=== PATIENT | female | born 1990 | race Caucasian/White ===

== ENCOUNTER 2017-11-06 08:38 | Outpatient (CLI) | payer OTHER ==
--- NOTE | 2017-11-06 12:04 | XRAY Report ---
CHEST TWO VIEWS: 11/06/2017 CLINICAL HISTORY: Cough. COMPARISON: None. FINDINGS: Normal heart size. Clear lungs. No pleural fluid or pneumothorax. Negative bony structures . IMPRESSION: NEGATIVE TWO VIEW CHEST X-RAY. JOB #: [id number] EXT JOB #:[id number]
== END 2017-11-06 08:39 | disposition home or self-care (01) ==
LOC: DI.N 08:38
PROVIDERS: ATTEND Family Medicine
DX: R05 Cough (principal)
CPT/HCPCS: 71020

== ENCOUNTER 2018-03-06 12:02 | Emergency (ER) | payer OTHER ==
[2018-03-06 12:09] VITALS: BP 118/64
[2018-03-06] MEDS ORDERED: LOPERAMIDE 2 MG CAPSULE PO STA (13:09)
[2018-03-06] MEDS ORDERED: KETOROLAC 60 MG/2 ML VIAL IVP STA (13:09)
[2018-03-06] MEDS ORDERED: SODIUM CHLORIDE 0.9% 1,000 ML IV ONE (13:09)
[2018-03-06] MEDS ORDERED: ONDANSETRON 4 MG/2 ML VIAL IVP STA (13:09)
[2018-03-06] MEDS ORDERED: ALBUTEROL NEB 2.5 MG/3 ML INH STA (13:11)
--- NOTE | 2018-03-06 13:11 | ED Physician Documentation ---
History of Present Illness - Stated complaint Stated Complaint: VOMITTING,COUGH,ACHES - Chief complaint Chief Complaint: General - History obtained from History obtained from: Patient, Family - History of Present Illness Timing: Other ('s been sick for about a week with URI, potentially flu. She became abruptly ill last night with body aches, fevers and chills, vomiting and diarrhea. No recent travel.) Review of Systems Constitutional: reports: Fever, Chills, Myalgias, Fatigue Nose: reports: Rhinorrhea / runny nose Throat: reports: Sore throat Cardiac: denies: Chest pain / pressure GI: reports: Nausea, Vomiting, Diarrhea. denies: Abdominal Pain PD PAST MEDICAL HISTORY - Present Medications Home Medications: Ambulatory Orders Medication Instructions Recorded Confirmed Albuterol Sulfate [Proventil Hfa 1 - 2 puffs IH Q4H PRN #1 03/06/18 Inhaler] [email or web address] HYDROcod/ACETAM 5/325 [[place] 5/325] 1 - 2 ea PO Q6H PRN #15 tablet 03/06/18 Ibuprofen [Motrin] 800 mg PO Q8H PRN #30 tablet 03/06/18 Loperamide [Imodium] 2 mg PO QID PRN #10 capsule 03/06/18 Ondansetron HCl [Zofran] 4 mg PO Q6H PRN #10 tablet 03/06/18 - Allergies Allergies/Adverse Reactions: Allergies Allergy/AdvReac Type Severity Reaction Status Date / Time No Known Drug Allergies Allergy Verified 03/06/18 12:09 PD ED PE NORMAL - Vitals Vital signs reviewed: Yes - General General: Alert and oriented X 3, No acute distress - HEENT HEENT: PERRL, EOMI, Ears normal, Pharynx benign - Neck Neck: Supple, no meningeal sign, No bony TTP - Cardiac Cardiac: Other (Tachycardic, regular, no murmur) - Respiratory Respiratory: No respiratory distress, Other (Mild expiratory wheezing, this is not new for her she says. No focal findings.) - Abdomen Abdomen: Non tender - Derm Derm: No rash - Neuro Neuro: Alert and oriented X 3, Normal speech Results - Vitals Vitals: Vital Signs - 24 hr 03/06/18 03/06/18 12:05 13:23 Temperature 37.5 C Heart Rate 103 H 88 Respiratory 15 18 Rate Blood Pressure 118/64 O2 Saturation 100 Oxygen O2 Source Room air - Labs Labs: Laboratory Tests 03/06/18 03/06/18 03/06/18 13:19 13:19 13:26 Sodium 135 Potassium 3.5 Chloride 105 Carbon Dioxide 22 Anion Gap 8.0 BUN 17 Creatinine 0.6 Estimated GFR (MDRD) 119 Glucose 125 H Calcium 8.2 L Total Bilirubin 0.6 AST 25 ALT 18 Alkaline Phosphatase 64 Total Protein 6.8 Albumin 4.1 Globulin 2.7 Albumin/Globulin Ratio 1.5 Lipase 16 L Urine Color LT. YELLOW Urine Clarity CLEAR Urine pH 6.0 Ur Specific [place] 1.025 Urine Protein NEGATIVE Urine Glucose (UA) NEGATIVE Urine Ketones NEGATIVE Urine Occult Blood NEGATIVE Urine Nitrite NEGATIVE Urine Bilirubin NEGATIVE Urine Urobilinogen 0.2 (NORMAL) Ur Leukocyte Esterase NEGATIVE Ur Microscopic Review NOT INDICATED Urine Culture Comments NOT INDICATED Urine HCG, Qual NEGATIVE Influenza A (Rapid) Negative Influenza B (Rapid) Negative Influenza Types A,B Ag - PD MEDICAL DECISION MAKING - ED course ED course: Healthy 27-year-old woman with a very flulike illness, surprisingly her flu swab is negative, potentially false negative?. Feeling better after the administration of IV fluids, albuterol, Toradol, Zofran, and Imodium. Departure - Departure Disposition: 01 Home, Self Care Clinical Impression: Flu-like symptoms, Dehydration Vomiting Qualifiers: Vomiting type: unspecified Vomiting Intractability: non-intractable Nausea presence: with nausea Qualified Code(s): R11.2 - Nausea with vomiting, unspecified Condition: Good Record reviewed to determine appropriate education?: Yes Instructions: ED Diet Vomiting Diarrhea, ED Flu Prescriptions: Albuterol Sulfate [Proventil Hfa Inhaler] 1 - 2 puffs IH Q4H PRN #1 hfa.[email or web address] PRN Reason: Cough HYDROcod/ACETAM 5/325 [[place] 5/325] 1 - 2 ea PO Q6H PRN #15 tablet PRN Reason: Pain Ibuprofen [Motrin] 800 mg PO Q8H PRN #30 tablet PRN Reason: PAIN &/OR FEVER Loperamide [Imodium] 2 mg PO QID PRN #10 capsule PRN Reason: Diarrhea Ondansetron HCl [Zofran] 4 mg PO Q6H PRN #10 tablet PRN Reason: Nausea / Vomiting Comments: Call your doctor to arrange a follow-up appointment, make the next available appointment. In the interim, return anytime if worse or if new symptoms develop.
[2018-03-06 13:38] LABS: BILIRUBIN,URINE NEGATIVE (NEGATIVE); GLUCOSE, URINE (UA) NEGATIVE (NEGATIVE); KETONES,URINE (UA) NEGATIVE (NEGATIVE); LEUKOCYTE ESTERASE, URINE NEGATIVE (NEGATIVE); NITRITE,URINE NEGATIVE (NEGATIVE); OCCULT BLOOD,URINE NEGATIVE (NEGATIVE); PROTEIN,URINE NEGATIVE (NEGATIVE); UROBILINOGEN,URINE 0.2 (NORMAL) E.U./dL (NORMAL)
[2018-03-06 13:41] LABS: CLARITY,URINE CLEAR (CLEAR); HCG UR QUAL NEGATIVE
[2018-03-06 13:43] LABS: ALBUMIN 4.1 g/dL (3.2-5.5); ALBUMIN/GLOBULIN RATIO 1.5 (1.0-2.2); BILIRUBIN,TOTAL 0.6 mg/dL (0.2-1.0); CALCIUM 8.2 mg/dL (8.5-10.3); CREATININE 0.6 mg/dL (0.4-1.0); TOTAL PROTEIN 6.8 g/dL (6.7-8.2)
[2018-03-06] MEDS ORDERED: HYDROcod/ACETAM 5/325 MG TABLET PO STA (13:58)
== END 2018-03-06 14:33 | disposition home or self-care (01) ==
LOC: ED 12:02
DX: R11.2 Nausea with vomiting, unspecified (principal); E86.0 Dehydration
CPT/HCPCS: 36415; 80053; 81003; 81025; 83690; 87275; 87276; 94664; 96374; 96375; 99283; 99284; A9270; 81001; 87086

== ENCOUNTER 2018-03-08 12:06 | Inpatient (IN) | payer OTHER ==
[2018-03-08] MEDS ORDERED: HYDROcod/ACETAM 5/325 MG TABLET PO STA (15:32)
[2018-03-08 16:10] LABS: BILIRUBIN,URINE NEGATIVE (NEGATIVE); GLUCOSE, URINE (UA) NEGATIVE (NEGATIVE); KETONES,URINE (UA) NEGATIVE (NEGATIVE); LEUKOCYTE ESTERASE, URINE NEGATIVE (NEGATIVE); NITRITE,URINE NEGATIVE (NEGATIVE); OCCULT BLOOD,URINE NEGATIVE (NEGATIVE); PROTEIN,URINE NEGATIVE (NEGATIVE); UROBILINOGEN,URINE 0.2 (NORMAL) E.U./dL (NORMAL)
[2018-03-08 16:13] LABS: CLARITY,URINE CLEAR (CLEAR); HCG UR QUAL NEGATIVE
[2018-03-08 16:22] LABS: BASOPHILS % (AUTO) 0.9 %; EOSINOPHILS # (AUTO) 0.4 10^3/uL (0.0-0.7); EOSINOPHILS % (AUTO) 7.9 %; HGB - HEMOGLOBIN 11.2 g/dL (12.0-16.0); LYMPHOCYTES # (AUTO) 1.4 10^3/uL (1.5-3.5); LYMPHOCYTES % (AUTO) 30.1 %; MEAN CORPUSCULAR HEMOGLOBIN 28.9 pg (27.0-31.0); MEAN CORPUSCULAR HGB CONC 33.3 g/dL (32.0-36.0); MEAN CORPUSCULAR VOLUME 86.6 fL (81.0-99.0); MEAN PLATELET VOLUME 8.1 fL (7.9-10.8); MONOCYTES # (AUTO) 0.4 10^3/uL (0.0-1.0); MONOCYTES % (AUTO) 8.5 %; NEUTROPHILS # (AUTO) 2.5 10^3/uL (1.5-6.6); NEUTROPHILS % (AUTO) 52.6 %; PLT - PLATELET COUNT 152 10^3/uL (130-450); RED BLOOD COUNT 3.86 10^6/uL (4.20-5.40); RED CELL DISTRIBUTION WIDTH 13.7 % (12.0-15.0); WHITE BLOOD COUNT 4.7 x10^3/uL (4.8-10.8)
[2018-03-08] MEDS ORDERED: HYDROmorphone 1 MG/ML CARPUJECT IVP STA ×2 (16:26→20:32)
[2018-03-08] MEDS ORDERED: ONDANSETRON 4 MG/2 ML VIAL IVP STA (16:26)
--- NOTE | 2018-03-08 16:28 | ED Physician Documentation ---
PD HPI ABD PAIN - Stated complaint Stated Complaint: ABD PX - Chief complaint Chief Complaint: Abd Pain - History obtained from History obtained from: Patient - History of Present Illness Timing - onset: Other (She was here couple of days ago for what sounds like a viral illness, she was improving but starting around noon yesterday she developed severe nonradiating right upper quadrant pain that was much more severe than any other recent pain she has had. Only abdominal surgeries are C- sections in the past. No fevers.) Review of Systems Ten Systems: 10 systems reviewed and negative Constitutional: denies: Fever, Chills Cardiac: denies: Chest pain / pressure, Palpitations Respiratory: denies: Dyspnea, Cough GI: reports: Abdominal Pain. denies: Nausea, Vomiting, Constipation, Diarrhea PD PAST MEDICAL HISTORY - Past Medical History Respiratory: Asthma - Past Surgical History Past Surgical History: Yes /PEDIATRIC PSYCHIATRIST: section - Present Medications Home Medications: Ambulatory Orders Medication Instructions Recorded Confirmed Albuterol Sulfate [Proventil Hfa 1 - 2 puffs IH Q4H PRN #1 03/06/18 Inhaler] hfa.[email or web address] HYDROcod/ACETAM 5/325 [[place] 5/325] 1 - 2 ea PO Q6H PRN #15 tablet 03/06/18 Ibuprofen [Motrin] 800 mg PO Q8H PRN #30 tablet 03/06/18 Loperamide [Imodium] 2 mg PO QID PRN #10 capsule 03/06/18 Ondansetron HCl [Zofran] 4 mg PO Q6H PRN #10 tablet 03/06/18 - Allergies Allergies/Adverse Reactions: Allergies Allergy/AdvReac Type Severity Reaction Status Date / Time No Known Drug Allergies Allergy Verified 03/08/18 12:16 - Social History Does the pt smoke?: No Smoking Status: Never smoker Does the pt drink ETOH?: No Does the pt have substance abuse?: No - Family History Family history: reports: Non contributory - Immunizations Immunizations are current?: Yes - POLST Patient has POLST: No PD ED PE NORMAL - Vitals Vital signs reviewed: Yes - General General: Alert and oriented X 3, No acute distress - HEENT HEENT: PERRL, EOMI - Neck Neck: Supple, no meningeal sign, No bony TTP - Cardiac Cardiac: RRR, No murmur - Respiratory Respiratory: No respiratory distress, Clear bilaterally - Abdomen Abdomen: Other (Quite tender in the right upper quadrant with positive Boss sign) - Back Back: No CVA TTP, No spinal TTP - Derm Derm: Normal color, Warm and dry - Extremities Extremities: No edema, No calf tenderness / cord - Neuro Neuro: Alert and oriented X 3, Normal speech - Psych Psych: Normal mood, Normal affect Results - Vitals Vitals: Vital Signs - 24 hr 03/08/18 03/08/18 03/08/18 12:12 15:12 17:34 Temperature 36.6 C 36.7 C 36.8 C Heart Rate 66 75 67 Respiratory 16 15 16 Rate Blood Pressure 118/85 H 127/89 H 107/90 H O2 Saturation 100 100 100 03/08/18 03/08/18 18:47 19:45 Temperature 36.4 C L 36.7 C Heart Rate 66 66 Respiratory 16 15 Rate Blood Pressure 124/101 H 108/65 O2 Saturation 98 100 Oxygen O2 Source Room air - Labs Labs: Laboratory Tests 03/08/18 03/08/18 03/08/18 15:43 15:43 16:14 WBC 4.7 L RBC 3.86 L Hgb 11.2 L Hct 33.5 L MCV 86.6 MCH 28.9 MCHC 33.3 RDW 13.7 Plt Count 152 MPV 8.1 Neut # 2.5 Lymph # 1.4 L [place] # 0.4 Eos # 0.4 Baso # 0.0 Absolute Nucleated RBC 0.00 Nucleated RBC % 0.0 Sodium Potassium Chloride Carbon Dioxide Anion Gap BUN Creatinine Estimated GFR (MDRD) Glucose Calcium Total Bilirubin AST ALT Alkaline Phosphatase Total Protein Albumin Globulin Albumin/Globulin Ratio Lipase Urine Color YELLOW Urine Clarity CLEAR Urine pH 6.0 Ur Specific [place] 1.010 1.010 Urine Protein NEGATIVE Urine Glucose (UA) NEGATIVE Urine Ketones NEGATIVE Urine Occult Blood NEGATIVE Urine Nitrite NEGATIVE Urine Bilirubin NEGATIVE Urine Urobilinogen 0.2 (NORMAL) Ur Leukocyte Esterase NEGATIVE Ur Microscopic Review NOT INDICATED Urine Culture Comments NOT INDICATED Urine HCG, Qual NEGATIVE 03/08/18 16:14 WBC RBC Hgb Hct MCV MCH MCHC RDW Plt Count MPV Neut # Lymph # [place] # Eos # Baso # Absolute Nucleated RBC Nucleated RBC % Sodium 140 Potassium 3.3 L Chloride 107 Carbon Dioxide 25 Anion Gap 8.0 BUN 9 Creatinine 0.5 Estimated GFR (MDRD) 147 Glucose 98 Calcium 8.6 Total Bilirubin 0.2 AST 81 H ALT 86 H Alkaline Phosphatase 130 H Total Protein 6.8 Albumin 3.9 Globulin 2.9 Albumin/Globulin Ratio 1.3 Lipase 11 L Urine Color Urine Clarity Urine pH Ur Specific [place] Urine Protein Urine Glucose (UA) Urine Ketones Urine Occult Blood Urine Nitrite Urine Bilirubin Urine Urobilinogen Ur Leukocyte Esterase Ur Microscopic Review Urine Culture Comments Urine HCG, Qual - Rads (name of study) RUQ sono Radiology: EMP read contemporaneously (Thickened edematous gallbladder wall without obvious gallstones or common bile duct thickening.) PD MEDICAL DECISION MAKING - ED course ED course: 27-year-old woman with recent viral process now presents with pain that seems like it is biliary in origin. Ultrasound confirms an edematous gallbladder but without obvious cholecystolithiasis. Case was discussed by phone with Dr. Josh Valles 7 PM who recommended admission to the hospitalist service for hydration without antibiotics and a HIDA scan on Saturday. He defers to medicine for admit and I spoke with Dr Jones about 7:40. Departure - Departure Disposition: ED Place in Observation Clinical Impression: Acalculous cholecystitis Condition: Stable
[2018-03-08 16:33] LABS: ALBUMIN 3.9 g/dL (3.2-5.5); ALBUMIN/GLOBULIN RATIO 1.3 (1.0-2.2); BILIRUBIN,TOTAL 0.2 mg/dL (0.2-1.0); CALCIUM 8.6 mg/dL (8.5-10.3); CREATININE 0.5 mg/dL (0.4-1.0); TOTAL PROTEIN 6.8 g/dL (6.7-8.2)
[2018-03-08] MEDS ORDERED: SODIUM CHLORIDE 0.9% 1,000 ML IV ONE (18:46)
--- NOTE | 2018-03-08 18:47 | Ultrasound Preliminary Report ---
Exam: US ABDOMEN LIMITED IMPRESSION: 1. Thickened, edematous gallbladder with no evidence of cholelithiasis. This is a nonspecific finding and may be secondary to acalculous cholecystitis or systemic causes. 2. No bile duct dilatation. [facility] SITE ID: [id number]
--- NOTE | 2018-03-08 18:47 | Ultrasound Report ---
EXAM: ABDOMEN ULTRASOUND LIMITED, RUQ EXAM DATE: 03/08/2018 06:04 PM. CLINICAL HISTORY: RUQ pain. COMPARISON: None. TECHNIQUE: Real-time scanning was performed with static images obtained. FINDINGS: Liver: Normal in size and echotexture. 16.7 cm. Main portal vein flow: Hepatopetal. Gallbladder: No gallstones. Edematous, thickened gallbladder wall measuring up to 15.5 mm. There is t race pericholecystic fluid. Biliary System: CBD measures 3 mm. No intrahepatic or extrahepatic ductal dilatation. Other: No right hydronephrosis. IMPRESSION: 1. Thickened, edematous gallbladder with no evidence of cholelithiasis. This is a nonspecific finding and may be secondary to acalculous cholecystitis or systemic causes. 2. No bile duct dilatation. [facility] Referring Provider Line: [phone] SITE ID: [id number]
[2018-03-08] MEDS ORDERED: diazePAM INJ 5 MG/ML SYRINGE IVP STA (19:40)
[2018-03-08] MEDS ORDERED: PROMETHAZINE 25 MG/1 ML VIAL IM PRN (20:02)
[2018-03-08] MEDS ORDERED: PROCHLORPERAZINE 10 MG/2 ML VIAL IVP PRN (20:02)
[2018-03-08] MEDS ORDERED: ZOLPIDEM 5 MG TABLET PO PRN (20:02)
[2018-03-08] MEDS ORDERED: oxyCODONE 5 MG TABLET PO PRN (20:02)
[2018-03-08] MEDS ORDERED: NS W/20 MEQ KCL 1,000 ML IV SCH (21:00)
[2018-03-08] MEDS: SODIUM CHLORIDE FLUSH 0.9% 10 ML SYRINGE IVP PRN (21:45)
[2018-03-08] MEDS: CIPROFLOXACIN 400 MG/200 ML 200 ML IV SCH (21:45)
--- NOTE | 2018-03-08 23:10 | HISTORY & PHYSICAL EXAMINATION ---
Chief Complaint - Chief Complaint Chief Complaint: Abdominal pain History of Present Illness - Admitted From Admitted From:: Emergency department - History Obtained From Records Reviewed: Yes History obtained from: Patient Exam Limitations: None - History of Present Illness HPI Comment/Other: Patient is a 27-year-old female with a past medical history significant for asthma, hypothyroidism and anemia who presented to the emergency department with a chief complaint of abdominal pain. The patient states that she was in her normal state of health until about 4 days ago when she began having flulike symptoms. She states that she was feeling nauseated and had several episodes of vomiting. She states that she had a migraine, body aches and episodes of diarrhea. She did come to the emergency room 2 days ago with these symptoms and was evaluated by the emergency room physician and thought to have had a viral syndrome. The patient's labs and electrolytes at that time were within normal limits. The patient had a negative influenza swab and was discharged home with medication to help with her symptoms. The patient states that yesterday afternoon she began having acute right upper quadrant abdominal pain with abdominal tightness. The patient states that she took her pain medication but this did not completely alleviate this pain. She states that she then began feeling nauseated and took her meds and went to sleep around 7 PM last night. She states that when she woke up this morning her symptoms were worse she had progressively worsening right upper quadrant abdominal pain with increasing nausea and vomiting. The patient states that she is also felt hot and cold flashes over the last 2-3 nights. She states that she did not think that she had had any fevers. The patient states that her body aches and headache have become slightly better and diarrhea has gradually improved. The patient states that she has had this kind of abdominal pain in the past she states that she had really bad when she became . She also states that she notices that she gets abdominal tightness when she eats greasy foods. The patient denies any blurred vision, runny nose, sore throat, nasal congestion , difficulty swallowing, neck pain, chest pain, shortness of air, orthopnea, PND , increased lower extremity swelling, constipation, joint swelling, back pain, flank pain, neck stiffness, recent unintentional weight loss, skin changes, rashes, hair loss or any focal neurologic deficits. On presentation to the emergency department the patient was afebrile and vital signs were within normal limits. The patient did appear to be grimacing in pain and was given IV Dilaudid to alleviate the abdominal pain. The patient also was nauseated and given Zofran in the emergency department. The patient was given 1 L of IV fluid. The patient's lab work revealed that she was slightly hypokalemic with elevated AST ALT and alk phos. The patient's total bilirubin was within normal limits. The patient's urine analysis was negative and her urine hCG was negative. The patient had no leukocytosis and no fevers in the emergency department. On exam the patient had significant right upper quadrant tenderness with positive Boss sign. The patient underwent an abdominal ultrasound which showed a thickened, edematous gallbladder with no evidence of cholelithiasis. The findings were nonspecific but may represent a calculus cholecystitis. There was no bile duct dilation. The emergency room physician spoke with the surgeon press set up person Dr. Josh Valles and he asked that the patient be admitted to the [facility] by the hospitalist team. He requested that a HIDA scan be ordered as he was not convinced that this is a calculus cholecystitis and felt that this could all be secondary to a viral infection. He did ask that antibiotics be held however given the patient's symptoms, exam and questionable findings on abdominal ultrasound we decided to treat with IV antibiotics and IV fluids as a calculus cholecystitis can progress rapidly if untreated. 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 Social History Notes: The patient lives in [place] with her and 2 kids. Her is in the [employer]. 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 The patient is originally from [place] and moved up here with her . The patient does not smoke cigarettes, drink alcohol or use any illicit drugs. - POLST Patient has POLST: No POLST Status: Full Code Meds/Allgy - Home Medications Home Medications: Ambulatory Orders Medication Instructions Recorded Confirmed Albuterol Sulfate [Proventil Hfa 1 - 2 puffs IH Q4H PRN #1 03/06/18 Inhaler] hfa.aer.ad HYDROcod/ACETAM 5/325 [Wideman 5/325] 1 - 2 ea PO Q6H PRN #15 tablet 03/06/18 Ibuprofen [Motrin] 800 mg PO Q8H PRN #30 tablet 03/06/18 Loperamide [Imodium] 2 mg PO QID PRN #10 capsule 03/06/18 Ondansetron HCl [Zofran] 4 mg PO Q6H PRN #10 tablet 03/06/18 - Allergies Allergies/Adverse Reactions: Allergies Allergy/AdvReac Type Severity Reaction Status Date / Time No Known Drug Allergies Allergy Verified 03/08/18 12:16 Review of Systems - Other Findings Other Findings: A comprehensive review of systems was performed the pertinent positives and negatives are stated above in the HPI and the remainder of the review of systems is negative. Exam - Vital Signs Reviewed Vital Signs: Yes Vital Signs: Vital Signs x48h Temp Pulse Pulse Resp BP BP Pulse Ox 03/08/18 21:25 36.8 C 64 16 103/62 98 03/08/18 21:10 67 16 121/65 98 - Physical Exam General Appearance: positive: Alert, Mild distress (Patient grimacing with pain) Eyes Bilateral: positive: Normal inspection, PERRL, EOMI, No lid inflammation, Conjunctivae nml, No scleral icterus ENT: positive: ENT inspection nml, Pharynx nml, Dry mucous membranes. negative : Purulent nasal drainage, Pharyngeal erythema, Oral lesions Neck: positive: Nml inspection, Thyroid nml, No JVD, Trachea midline. negative : Thyromegaly, Lymphadenopathy (R), Lymphadenopathy (L), Stiff neck, Carotid bruit, Tracheal deviation Respiratory: positive: Chest non-tender, No respiratory distress, Breath sounds nml. negative: Wheezes, Rales, Rhonchi Cardiovascular: positive: Regular rate & rhythm, No murmur, No gallop Peripheral Pulses: positive: 2+ Abdomen: positive: No organomegaly, Nml bowel sounds, Tenderness (right upper quadrant and epigastric area), Other (Positive murphys sign). negative: Guarding, Rebound, Hepatomegaly Back: positive: Nml inspection. negative: CVA tenderness (R), CVA tenderness (L ) Skin: positive: Color nml, No rash, Warm. negative: Cyanosis, Diaphoresis, Pallor, Skin rash Extremities: positive: Non-tender, Full ROM, Nml appearance, No pedal edema Neurologic/Psychiatric: positive: Oriented x3, CN's nml (2-12), Motor nml, Sensation nml, Mood/affect nml Conclusion/Plan - Problem List (1) Acalculous cholecystitis Conclusion/Plan: The patient presents with right upper quadrant abdominal pain and tenderness. The patient does have a positive Boss sign. The patient's abdominal ultrasound is concerning for possible acalculous cholecystitis. The patient has had similar symptoms of right upper quadrant pain in the past when eating greasy foods and while she was . Emergency room physician did speak with the surgeon press set up person who asked for a HIDA scan which cannot be done until Saturday. The patient is being admitted by the hospitalist team for a calculus cholecystitis. Plan: IV ciprofloxacin and Flagyl IV fluids IV antiemetics IV pain medication HIDA scan Surgical consult (2) Hypokalemia Conclusion/Plan: The patient has hypokalemia on presentation with a potassium of 3.3 this is likely due to her vomiting at home. The patient continues to be nauseous and will be given antiemetics for her nausea. The patient will be given potassium replacement while she is hospitalized. (3) Transaminitis Conclusion/Plan: The patient does have a transaminitis with elevated AST, ALT and alk phos. This could be in the setting of a calculus cholecystitis. Also the patient did have flulike symptoms over the last 4 days and could also have a viral infection which can also cause a transaminitis. For now we will trend the patient's LFTs if they do continue to rise patient will likely need cholecystectomy. (4) Hypothyroidism Conclusion/Plan: Patient has a history of hypothyroidism and uses Synthroid 75 mcg daily at home She appears to be stable at this time and will be continued on her home dose of Synthroid. Qualifiers: Hypothyroidism type: unspecified Qualified Code(s): E03.9 - Hypothyroidism , unspecified (5) Asthma Conclusion/Plan: Patient has history of asthma which is currently stable Patient will be placed on albuterol nebulizer as needed while she is hospitalized. Qualifiers: Asthma severity: mild Asthma persistence: intermittent Asthma complication type: uncomplicated Qualified Code(s): J45.20 - Mild intermittent asthma, uncomplicated (6) Anemia Conclusion/Plan: The patient has history of iron deficiency anemia and is on iron supplements at home. Her hemoglobin is currently 11.2 which is only mildly anemic. We do not have a previous hemoglobin but assume that it has improved from when she started using the iron. Stable Qualifiers: Anemia type: iron deficiency Iron deficiency anemia type: chronic blood loss Qualified Code(s): D50.0 - Iron deficiency anemia secondary to blood loss (chronic) - Lab Results Lab results reviewed: Yes Fish Bones: 03/08/18 16:14 03/08/18 16:14 Other Lab Results: Laboratory Results WBC 4.7 x10^3/uL (4.8-10.8) L 03/08/18 16:14 RBC 3.86 10^6/uL (4.20-5.40) L 03/08/18 16:14 Hgb 11.2 g/dL (12.0-16.0) L 03/08/18 16:14 Hct 33.5 % (37.0-47.0) L 03/08/18 16:14 MCV 86.6 fL (81.0-99.0) 03/08/18 16:14 MCH 28.9 pg (27.0-31.0) 03/08/18 16:14 MCHC 33.3 g/dL (32.0-36.0) 03/08/18 16:14 RDW 13.7 % (12.0-15.0) 03/08/18 16:14 Plt Count 152 10^3/uL (130-450) 03/08/18 16:14 MPV 8.1 fL (7.9-10.8) 03/08/18 16:14 Neut # 2.5 10^3/uL (1.5-6.6) 03/08/18 16:14 Lymph # 1.4 10^3/uL (1.5-3.5) L 03/08/18 16:14 [place] # 0.4 10^3/uL (0.0-1.0) 03/08/18 16:14 Eos # 0.4 10^3/uL (0.0-0.7) 03/08/18 16:14 Baso # 0.0 10^3/uL (0.0-0.1) 03/08/18 16:14 Absolute Nucleated RBC 0.00 x10^3/uL 03/08/18 16:14 Nucleated RBC % 0.0 /100WBC 03/08/18 16:14 Sodium 140 mmol/L (135-145) 03/08/18 16:14 Potassium 3.3 mmol/L (3.5-5.0) L 03/08/18 16:14 Chloride 107 mmol/L (101-111) 03/08/18 16:14 Carbon Dioxide 25 mmol/L (21-32) 03/08/18 16:14 Anion Gap 8.0 (6-13) 03/08/18 16:14 BUN 9 mg/dL (6-20) 03/08/18 16:14 Creatinine 0.5 mg/dL (0.4-1.0) 03/08/18 16:14 Estimated GFR (MDRD) 147 (>89) 03/08/18 16:14 Glucose 98 mg/dL (70-100) 03/08/18 16:14 Calcium 8.6 mg/dL (8.5-10.3) 03/08/18 16:14 Total Bilirubin 0.2 mg/dL (0.2-1.0) 03/08/18 16:14 AST 81 IU/L (10-42) H 03/08/18 16:14 ALT 86 IU/L (10-60) H 03/08/18 16:14 Alkaline Phosphatase 130 IU/L (42-121) H 03/08/18 16:14 Total Protein 6.8 g/dL (6.7-8.2) 03/08/18 16:14 Albumin 3.9 g/dL (3.2-5.5) 03/08/18 16:14 Globulin 2.9 g/dL (2.1-4.2) 03/08/18 16:14 Albumin/Globulin Ratio 1.3 (1.0-2.2) 03/08/18 16:14 Lipase 11 U/L (22-51) L 03/08/18 16:14 Urine Color YELLOW 03/08/18 15:43 Urine Clarity CLEAR (CLEAR) 03/08/18 15:43 Urine pH 6.0 PH (5.0-7.5) 03/08/18 15:43 Ur Specific [place] 1.010 (1.002-1.030) 03/08/18 15:43 Urine Protein NEGATIVE mg/dL (NEGATIVE) 03/08/18 15:43 Urine Glucose (UA) NEGATIVE mg/dL (NEGATIVE) 03/08/18 15:43 Urine Ketones NEGATIVE mg/dL (NEGATIVE) 03/08/18 15:43 Urine Occult Blood NEGATIVE (NEGATIVE) 03/08/18 15:43 Urine Nitrite NEGATIVE (NEGATIVE) 03/08/18 15:43 Urine Bilirubin NEGATIVE (NEGATIVE) 03/08/18 15:43 Urine Urobilinogen 0.2 (NORMAL) E.U./dL (NORMAL) 03/08/18 15:43 Ur Leukocyte Esterase NEGATIVE (NEGATIVE) 03/08/18 15:43 Ur Microscopic Review NOT INDICATED 03/08/18 15:43 Urine Culture Comments NOT INDICATED 03/08/18 15:43 Urine HCG, Qual NEGATIVE 03/08/18 15:43 - Diagnostic Imaging Results Diagnostic Imaging Results: positive: Final report reviewed Diagnostic Imaging Results Comments: Abdominal ultrasound Impression: 1. Thickened, edematous gallbladder with no evidence of cholelithiasis. This is a nonspecific finding and may be secondary to a calculus cholecystitis or systemic causes. 2. No bile duct dilatation. Core Measures - Anticipated LOS I expect patient to be DC'd or transferred within 96 hours.: Yes - DVT/VTE - Prophylaxis VTE/DVT Device ordered at admit?: Yes
[2018-03-08] MEDS: metroNIDAZOLE 500 MG/100 ML 500 MG/100 ML BAG IV SCH (23:57)
[2018-03-09] MEDS: SODIUM CHLORIDE FLUSH 0.9% 10 ML SYRINGE IVP SCH ×3 (00:02→17:04)
[2018-03-09] MEDS: HYDROmorphone 1 MG/ML CARPUJECT IVP PRN ×6 (00:17→22:05)
[2018-03-09] MEDS ORDERED: ALBUTEROL NEB 2.5 MG/3 ML INH PRN (00:24)
[2018-03-09] MEDS: LEVOTHYROXINE 75 MCG TABLET PO SCH ×2 (00:37→06:13)
[2018-03-09] MEDS: oxyCODONE 5 MG TABLET PO PRN ×3 (03:18→16:37)
[2018-03-09 06:06] LABS: BASOPHILS % (AUTO) 0.6 %; EOSINOPHILS # (AUTO) 0.4 10^3/uL (0.0-0.7); EOSINOPHILS % (AUTO) 10.3 %; HGB - HEMOGLOBIN 10.7 g/dL (12.0-16.0); LYMPHOCYTES # (AUTO) 1.4 10^3/uL (1.5-3.5); LYMPHOCYTES % (AUTO) 33.5 %; MEAN CORPUSCULAR HEMOGLOBIN 29.1 pg (27.0-31.0); MEAN CORPUSCULAR HGB CONC 33.5 g/dL (32.0-36.0); MEAN PLATELET VOLUME 8.2 fL (7.9-10.8); MONOCYTES # (AUTO) 0.3 10^3/uL (0.0-1.0); NEUTROPHILS % (AUTO) 48.6 %; PLT - PLATELET COUNT 131 10^3/uL (130-450); RED BLOOD COUNT 3.67 10^6/uL (4.20-5.40); RED CELL DISTRIBUTION WIDTH 13.5 % (12.0-15.0); WHITE BLOOD COUNT 4.1 x10^3/uL (4.8-10.8)
[2018-03-09 06:13] LABS: INR 1.1 (0.8-1.2); PT - PROTHROMBIN TIME 12.1 secs (9.9-12.6)
[2018-03-09] MEDS: metroNIDAZOLE 500 MG/100 ML 500 MG/100 ML BAG IV SCH ×3 (06:13→18:02)
[2018-03-09 06:17] LABS: ALBUMIN 3.2 g/dL (3.2-5.5); ALBUMIN/GLOBULIN RATIO 1.3 (1.0-2.2); BILIRUBIN,TOTAL 0.6 mg/dL (0.2-1.0); CALCIUM 7.7 mg/dL (8.5-10.3); CREATININE 0.5 mg/dL (0.4-1.0); MAGNESIUM 1.9 mg/dL (1.7-2.8); PHOSPHORUS 2.7 mg/dL (2.5-4.6); TOTAL PROTEIN 5.7 g/dL (6.7-8.2)
[2018-03-09] MEDS: ONDANSETRON 4 MG/2 ML VIAL IVP PRN ×3 (06:58→18:13)
[2018-03-09] MEDS: FAMOTIDINE 20 MG TABLET PO SCH (08:10)
[2018-03-09] MEDS: CIPROFLOXACIN 400 MG/200 ML 200 ML IV SCH ×2 (08:10→20:36)
[2018-03-09] MEDS: ACETAMINOPHEN 325 MG TABLET PO PRN ×2 (08:10→16:36)
[2018-03-09] MEDS ORDERED: POTASSIUM CHLORIDE 20 MEQ TABLET PO ONE (08:10)
[2018-03-09] MEDS: FERROUS SULFATE 325 MG TABLET PO SCH (09:17)
[2018-03-09] MEDS: D5.45NS W/20 MEQ KCL 1,000 ML IV SCH ×2 (09:18→22:04)
[2018-03-09] MEDS ORDERED: CALCIUM GLUCONATE 1,000 MG in SODIUM CHLORIDE 0.9% 50 ML IV ONE (10:00)
[2018-03-09] MEDS: POLYETHYLENE GLYCOL 3350 17 GM PACKET PO SCH (12:42)
--- NOTE | 2018-03-09 13:58 | PROVIDER PROGRESS NOTE ---
Subjective - Prog Note Date Prog Note Date: 03/09/18 - Subjective Pt reports feeling: No change Subjective: pt still report pain at upper right quadrant. discussed with surgeon. Surgeon plan to do HIDA scan to pt on tomorrow then determine if surgery to pt. Unfortunately we do not have HIDA scan service today, explain to pt. Surgeon also recommend pt had diet which will help for test HIDA scan. Current Medications - Current Medications Current Medications: Active Medications Acetaminophen (Tylenol) 650 mg PO Q4HR PRN PRN Reason: Pain 1 to 4 Last Admin: 03/09/18 08:10 Dose: 650 mg Albuterol () 2.5 mg INH RTQ4H PRN PRN Reason: Wheezing Famotidine (Pepcid) 20 mg PO DAILY [facility] Last Admin: 03/09/18 08:10 Dose: 20 mg Ferrous Sulfate (Feosol) 325 mg PO DAILYWM [facility] Last Admin: 03/09/18 09:17 Dose: 325 mg Hydromorphone HCl (Dilaudid Inj Carp) 1 mg IVP Q2HR PRN PRN Reason: Pain 8 to 10 Last Admin: 03/09/18 12:43 Dose: 1 mg Ciprofloxacin (Cipro 400 Mg/200 Ml) 200 mls @ 200 mls/hr IV Q12H [facility] Last Infusion: 03/09/18 09:19 Dose: Infused Metronidazole (Flagyl 500 Mg/100 Ml) 500 mg in 100 mls @ 100 mls/hr IV Q6HR [facility] Last Admin: 03/09/18 11:57 Dose: 100 mls/hr Potassium Chloride/Dextrose/Sod Cl (D5.45ns W/20 Meq Kcl) 1,000 mls @ 100 mls/ hr IV .Q10H [facility] Last Admin: 03/09/18 09:18 Dose: 100 mls/hr Levothyroxine Sodium (Synthroid) 75 mcg PO QDAC [facility] Last Admin: 03/09/18 06:13 Dose: 75 mcg Ondansetron HCl (Zofran Inj) 4 mg IVP Q6HR PRN PRN Reason: Nausea / Vomiting Last Admin: 03/09/18 12:44 Dose: 4 mg Oxycodone HCl (Roxicodone) 5 mg PO Q4HR PRN PRN Reason: Pain 5 to 7 Oxycodone HCl (Roxicodone) 10 mg PO Q4HR PRN PRN Reason: Pain 8 to 10 Last Admin: 03/09/18 08:09 Dose: 10 mg Polyethylene Glycol (Miralax) 17 gm PO DAILY [facility] Last Admin: 03/09/18 12:42 Dose: Not Given Prochlorperazine Edisylate (Compazine Inj) 10 mg IVP Q6HR PRN PRN Reason: Nausea / Vomiting Last Admin: 03/09/18 08:49 Dose: 10 mg Promethazine HCl (Phenergan Inj) 25 mg IM Q6HR PRN PRN Reason: Nausea / Vomiting Sodium Chloride (Normal Saline Flush 0.9%) 10 ml IVP PRN PRN PRN Reason: NEEDED PER PROVIDER ORDERS Last Admin: 03/08/18 21:45 Dose: 10 ml Sodium Chloride (Normal Saline Flush 0.9%) 10 ml IVP 0100,0900,1700 [facility] Last Admin: 03/09/18 08:57 Dose: 10 ml Zolpidem Tartrate (Ambien) 5 mg PO QPM PRN PRN Reason: Insomnia Levothyroxine [Synthroid] 75 mcg PO QDAC 03/09/18 Sertraline HCl [Zoloft] 100 mg PO DAILY 03/09/18 Objective - Vital Signs/Intake & Output Reviewed Vital Signs: Yes Vital Signs: Vital Signs x48h Temp Pulse Resp BP Pulse Ox 03/09/18 08:20 36.5 C 75 18 108/63 99 03/09/18 08:00 36.5 C 67 19 113/69 93 Intake & Output: Intake & Output 03/06/18 03/07/18 03/08/18 03/09/18 23:59 23:59 23:59 23:59 Intake Total 1201.667 400 Balance 1201.667 400 - Objective General Appearance: positive: No acute distress, Alert. negative: Lethargic Eyes Bilateral: positive: Normal inspection, PERRL, No lid inflammation, Conjunctivae nml ENT: positive: ENT inspection nml, Pharynx nml, No signs of dehydration. negative: Purulent nasal drainage, Pharyngeal erythema, Oral lesions Neck: positive: Nml inspection, Thyroid nml, No JVD, Trachea midline. negative : Thyromegaly, Lymphadenopathy (R), Lymphadenopathy (L), Stiff neck, Carotid bruit, Swelling/bruising, Tracheal deviation Respiratory: positive: Chest non-tender, No respiratory distress, Breath sounds nml. negative: Wheezes, Rales, Rhonchi Cardiovascular: positive: Regular rate & rhythm, No murmur, No gallop. negative : Irregularly irregular, Extrasystoles, Tachycardia, Bradycardia, Systolic murmur, Diastolic murmur Peripheral Pulses: 2+ Radial (R), 2+ Radial (L), 2+ Dorsalis pedis (R), 2+ Dorsalis pedis (L) Abdomen: positive: No organomegaly, Nml bowel sounds, No distention, Other ( mild to moderate tenderness on right upper quadrant, and positive Murphin sign) . negative: Guarding, Rebound Back: positive: Nml inspection. negative: CVA tenderness (R), CVA tenderness (L ) Skin: positive: Color nml, No rash, Warm, Dry. negative: Cyanosis, Diaphoresis , Pallor Extremities: positive: Non-tender, Full ROM, Nml appearance. negative: Calf tenderness, Joint swelling, Grezgorz's sign/cords Neurologic/Psychiatric: positive: Motor nml, Sensation nml. negative: Weakness , Sensory loss, Facial droop, Slurred/abnml speech, Depressed mood/affect - Lab Results Fish Bones: 03/09/18 05:54 03/09/18 05:54 Other Labs: Lab Results x24hrs 03/09/18 03/09/18 03/09/18 Range/Units 05:54 05:54 05:54 WBC (4.8-10.8) x10^3/uL RBC (4.20-5.40) 10^6/uL Hgb (12.0-16.0) g/dL Hct (37.0-47.0) % MCV (81.0-99.0) fL MCH (27.0-31.0) pg MCHC (32.0-36.0) g/dL RDW (12.0-15.0) % Plt Count (130-450) 10^3/uL MPV (7.9-10.8) fL Neut # (1.5-6.6) 10^3/uL Lymph # (1.5-3.5) 10^3/uL [place] # (0.0-1.0) 10^3/uL Eos # (0.0-0.7) 10^3/uL Baso # (0.0-0.1) 10^3/uL Absolute Nucleated RBC x10^3/uL Nucleated RBC % /100WBC PT 12.1 (9.9-12.6) secs INR 1.1 (0.8-1.2) Sodium 140 (135-145) mmol/L Potassium 3.2 L (3.5-5.0) mmol/L Chloride 110 (101-111) mmol/L Carbon Dioxide 23 (21-32) mmol/L Anion Gap 7.0 (6-13) BUN 7 (6-20) mg/dL Creatinine 0.5 (0.4-1.0) mg/dL Estimated GFR (MDRD) 147 (>89) Glucose 86 (70-100) mg/dL Lactic Acid 0.5 (0.5-2.2) mmol/L Calcium 7.7 L (8.5-10.3) mg/dL Phosphorus 2.7 (2.5-4.6) mg/dL Magnesium 1.9 (1.7-2.8) mg/dL Total Bilirubin 0.6 (0.2-1.0) mg/dL AST 49 H (10-42) IU/L ALT 66 H (10-60) IU/L Alkaline Phosphatase 113 (42-121) IU/L Total Protein 5.7 L (6.7-8.2) g/dL Albumin 3.2 (3.2-5.5) g/dL Globulin 2.5 (2.1-4.2) g/dL Albumin/Globulin Ratio 1.3 (1.0-2.2) 03/09/18 Range/Units 05:54 WBC 4.1 L (4.8-10.8) x10^3/uL RBC 3.67 L (4.20-5.40) 10^6/uL Hgb 10.7 L (12.0-16.0) g/dL Hct 32.0 L (37.0-47.0) % MCV 87.0 (81.0-99.0) fL MCH 29.1 (27.0-31.0) pg MCHC 33.5 (32.0-36.0) g/dL RDW 13.5 (12.0-15.0) % Plt Count 131 (130-450) 10^3/uL MPV 8.2 (7.9-10.8) fL Neut # 2.0 (1.5-6.6) 10^3/uL Lymph # 1.4 L (1.5-3.5) 10^3/uL [place] # 0.3 (0.0-1.0) 10^3/uL Eos # 0.4 (0.0-0.7) 10^3/uL Baso # 0.0 (0.0-0.1) 10^3/uL Absolute Nucleated RBC 0.00 x10^3/uL Nucleated RBC % 0.0 /100WBC PT (9.9-12.6) secs INR (0.8-1.2) Sodium (135-145) mmol/L Potassium (3.5-5.0) mmol/L Chloride (101-111) mmol/L Carbon Dioxide (21-32) mmol/L Anion Gap (6-13) BUN (6-20) mg/dL Creatinine (0.4-1.0) mg/dL Estimated GFR (MDRD) (>89) Glucose (70-100) mg/dL Lactic Acid (0.5-2.2) mmol/L Calcium (8.5-10.3) mg/dL Phosphorus (2.5-4.6) mg/dL Magnesium (1.7-2.8) mg/dL Total Bilirubin (0.2-1.0) mg/dL AST (10-42) IU/L ALT (10-60) IU/L Alkaline Phosphatase (42-121) IU/L Total Protein (6.7-8.2) g/dL Albumin (3.2-5.5) g/dL Globulin (2.1-4.2) g/dL Albumin/Globulin Ratio (1.0-2.2) Assessment/Plan - Problem List (1) Acalculous cholecystitis Impression: (1) Acalculous cholecystitis Conclusion/Plan: discuss with pt for surgeon's plan, answer all concerns. Pt will have HIDA scan tomorrow, order diet to pt per surgeon's recommend. continue pain control, and antibiotics until clear etiology IVF The patient presents with right upper quadrant abdominal pain and tenderness. The patient does have a positive Boss sign. The patient's abdominal ultrasound is concerning for possible acalculous cholecystitis. The patient has had similar symptoms of right upper quadrant pain in the past when eating greasy foods and while she was . Emergency room physician did speak with the surgeon plant operator control room operator who asked for a HIDA scan which cannot be done until Saturday. The patient is being admitted by the hospitalist team for a calculus cholecystitis. Plan: IV ciprofloxacin and Flagyl IV fluids IV antiemetics IV pain medication HIDA scan Surgical consult (2) Hypokalemia Conclusion/Plan: replacement of potassium continue daily lab monitor The patient has hypokalemia on presentation with a potassium of 3.3 this is likely due to her vomiting at home. The patient continues to be nauseous and will be given antiemetics for her nausea. The patient will be given potassium replacement while she is hospitalized. (3) Transaminitis Conclusion/Plan: slight elevated liver enzyme order hepatitis panel continue support, lab monitor The patient does have a transaminitis with elevated AST, ALT and alk phos. This could be in the setting of a calculus cholecystitis. Also the patient did have flulike symptoms over the last 4 days and could also have a viral infection which can also cause a transaminitis. For now we will trend the patient's LFTs if they do continue to rise patient will likely need cholecystectomy. (4) Hypothyroidism Conclusion/Plan: order TSH, continue home meds Patient has a history of hypothyroidism and uses Synthroid 75 mcg daily at home She appears to be stable at this time and will be continued on her home dose of Synthroid. (5) Asthma Conclusion/Plan: stable, continue home meds Patient has history of asthma which is currently stable Patient will be placed on albuterol nebulizer as needed while she is hospitalized. (6) Anemia Conclusion/Plan: HGB today is 10.7, could be dilated. MCV is less than 90, order iron study, iron deficiency ferrous sulf daily The patient has history of iron deficiency anemia and is on iron supplements at home. Her hemoglobin is currently 11.2 which is only mildly anemic. We do not have a previous hemoglobin but assume that it has improved from when she started using the iron. Stable
[2018-03-09] MEDS: SODIUM CHLORIDE FLUSH 0.9% 10 ML SYRINGE IVP PRN (18:14)
--- NOTE | 2018-03-09 22:31 | CONSULTATION NOTE ---
DATE OF SERVICE: 03/09/2018 Physician: Luca Valles MD REFERRING PHYSICIAN: EL Betancourt REASON FOR CONSULTATION: Elevated liver function tests. HISTORY OF PRESENT ILLNESS: The patient is a 27-year-old female who was seen in the emergency room approximately 2 days ago with a viral illness. She continues to be ill and now having right upper quadrant abdominal pain. She has come back to the emergency room because of this. She denies any history of jaundice, acholic stools, dark urine or peptic ulcer disease. She had an abdominal ultrasound, which revealed a gallbladder without gallstones and a thickened wall. She had mildly elevated liver function tests. PAST SURGICAL HISTORY: section. MEDICAL PROBLEMS: Asthma. MEDICATIONS 1. Albuterol. 2. Hart. HABITS: Patient denies any smoking, alcohol or drug use. ALLERGIES TO MEDICATIONS: None. FAMILY HISTORY: Of medical problems is no significant medical issues. SOCIAL HISTORY: The patient is . REVIEW OF SYSTEMS: A complete review of systems was obtained. Pertinent positives are GASTROINTESTINAL: Abdominal pain. Nausea and vomiting. CONSTITUTIONAL: Chills. A 12-point review of system was obtained with pertinent positives discussed and all others being negative gastrointestinal nausea and vomiting. PHYSICAL EXAMINATION VITAL SIGNS: Temperature is 36.8, pulse 67, respirations 18, blood pressure 121/65. GENERAL: Patient is lying in bed, minimal distress. HEENT: Eyes nonicteric. NECK: No lymphadenopathy. HEART: Regular. LUNGS: Clear. BACK: Nontender. ABDOMEN: Soft. Minimal tenderness in the upper part of the abdomen. No peritoneal signs, no hernias. EXTREMITIES: No edema or cyanosis. NEUROLOGIC: The patient appears to be neurologically intact without any deficit. PSYCHOLOGICAL: The patient is coherent, cooperative, and appears to answer questions fully. DIAGNOSTIC DATA: Ultrasound of the abdomen: See history of present illness. Patient's liver function tests of AST has decreased from 81 to 49. ALT 86 to 66. Alkaline phosphatase at 130, decreasing down to 113. Bilirubin was normal. Patient's white blood cell count has been normal at 4.1, hemoglobin 10.7. ASSESSMENT 1. Upper abdominal pain along with mildly elevated liver function tests that are decreasing. She had an abdominal ultrasound, which showed thickened gallbladder wall that may be due to acute acalculous cholecystitis. The patient does not have any significant abdominal pain, minimally elevated liver function tests along with a normal white blood cell count. An acalculous cholecystitis is very unlikely in this situation. However, this still needs to be ruled out and therefore, I recommend the patient undergo a hepatobiliary scan when it is available. She will need to be on a diet for the hepatobiliary scan in order to be as accurate as possible. 2. Elevated liver function tests, probably secondary to a viral infection. 3. Asthma, on inhalers. PLAN 1. Hepatobiliary scan when available. 2. IV hydration. TD: 03/09/2018 22:30
[2018-03-10] MEDS: metroNIDAZOLE 500 MG/100 ML 500 MG/100 ML BAG IV SCH ×3 (00:41→12:39)
[2018-03-10] MEDS: HYDROmorphone 1 MG/ML CARPUJECT IVP PRN ×6 (00:41→14:57)
[2018-03-10] MEDS: SODIUM CHLORIDE FLUSH 0.9% 10 ML SYRINGE IVP SCH ×3 (00:42→19:34)
[2018-03-10] MEDS: ONDANSETRON 4 MG/2 ML VIAL IVP PRN ×2 (00:50→08:21)
[2018-03-10] MEDS: SODIUM CHLORIDE FLUSH 0.9% 10 ML SYRINGE IVP PRN ×2 (00:51→04:02)
[2018-03-10] MEDS: oxyCODONE 5 MG TABLET PO PRN ×2 (02:13→08:16)
[2018-03-10 05:04] LABS: BASOPHILS % (AUTO) 0.7 %; EOSINOPHILS # (AUTO) 0.4 10^3/uL (0.0-0.7); EOSINOPHILS % (AUTO) 8.8 %; HGB - HEMOGLOBIN 10.8 g/dL (12.0-16.0); LYMPHOCYTES % (AUTO) 22.9 %; MEAN CORPUSCULAR HEMOGLOBIN 28.8 pg (27.0-31.0); MEAN CORPUSCULAR VOLUME 87.1 fL (81.0-99.0); MEAN PLATELET VOLUME 8.3 fL (7.9-10.8); MONOCYTES # (AUTO) 0.4 10^3/uL (0.0-1.0); MONOCYTES % (AUTO) 8.3 %; NEUTROPHILS # (AUTO) 2.6 10^3/uL (1.5-6.6); NEUTROPHILS % (AUTO) 59.3 %; PLT - PLATELET COUNT 139 10^3/uL (130-450); RED BLOOD COUNT 3.75 10^6/uL (4.20-5.40); RED CELL DISTRIBUTION WIDTH 13.6 % (12.0-15.0); WHITE BLOOD COUNT 4.4 x10^3/uL (4.8-10.8)
[2018-03-10 05:20] LABS: ALBUMIN 3.4 g/dL (3.2-5.5); ALBUMIN/GLOBULIN RATIO 1.5 (1.0-2.2); ALKALINE PHOSPHATASE 97 IU/L (42-121); ALT ALANINE AMINOTRANSFERASE 53 IU/L (10-60); AST ASPARTATE AMINOTRANSFERASE 34 IU/L (10-42); BILIRUBIN,TOTAL 0.6 mg/dL (0.2-1.0); BUN - BLOOD UREA NITROGEN < 5 mg/dL (6-20); CALCIUM 8.1 mg/dL (8.5-10.3); CARBON DIOXIDE - CO2 26 mmol/L (21-32); CHLORIDE 108 mmol/L (101-111); CREATININE 0.6 mg/dL (0.4-1.0); GFR - MDRD 119 (>89); GLUCOSE 117 mg/dL (70-100); MAGNESIUM 1.8 mg/dL (1.7-2.8); PHOSPHORUS 2.6 mg/dL (2.5-4.6); SODIUM 138 mmol/L (135-145); TOTAL PROTEIN 5.6 g/dL (6.7-8.2)
[2018-03-10] MEDS: LEVOTHYROXINE 75 MCG TABLET PO SCH (06:49)
[2018-03-10] MEDS: D5.45NS W/20 MEQ KCL 1,000 ML IV SCH ×2 (06:54→12:39)
[2018-03-10] MEDS ORDERED: POTASSIUM CHLORIDE 20 MEQ TABLET PO ONE (07:20)
[2018-03-10] MEDS: CIPROFLOXACIN 400 MG/200 ML 200 ML IV SCH (08:16)
[2018-03-10] MEDS: FAMOTIDINE 20 MG TABLET PO SCH (08:16)
[2018-03-10] MEDS: FERROUS SULFATE 325 MG TABLET PO SCH (08:17)
--- NOTE | 2018-03-10 08:22 | PROVIDER PROGRESS NOTE ---
Subjective - General Admit Date: 03/08/18 - Review of Systems General: positive: Other (patient lying her side) Gastrointestinal: positive: Other (c/o right flank pain) Objective - Patient Data Weight: Weight 03/08/18 03/09/18 03/10/18 23:59 23:59 23:59 Weight (kg) 75 kg Intake & Output: Intake and Output Totals x24h 03/08/18 03/09/18 03/10/18 23:59 23:59 23:59 Intake Total 6893.750 1329.333 100 Output Total 2 Balance 9622.706 2506.333 100 - Lab Results Lab Results: 03/10/18 04:34 03/10/18 04:34 Other Lab Results: Lab Results x24hrs 03/10/18 03/10/18 03/10/18 Range/Units 04:34 04:34 04:34 WBC 4.4 L (4.8-10.8) x10^3/uL RBC 3.75 L (4.20-5.40) 10^6/uL Hgb 10.8 L (12.0-16.0) g/dL Hct 32.7 L (37.0-47.0) % MCV 87.1 (81.0-99.0) fL MCH 28.8 (27.0-31.0) pg MCHC 33.0 (32.0-36.0) g/dL RDW 13.6 (12.0-15.0) % Plt Count 139 (130-450) 10^3/uL MPV 8.3 (7.9-10.8) fL Neut # 2.6 (1.5-6.6) 10^3/uL Lymph # 1.0 L (1.5-3.5) 10^3/uL Harnett # 0.4 (0.0-1.0) 10^3/uL Eos # 0.4 (0.0-0.7) 10^3/uL Baso # 0.0 (0.0-0.1) 10^3/uL Absolute Nucleated RBC 0.00 x10^3/uL Nucleated RBC % 0.0 /100WBC Sodium 138 (135-145) mmol/L Potassium 3.4 L (3.5-5.0) mmol/L Chloride 108 (101-111) mmol/L Carbon Dioxide 26 (21-32) mmol/L Anion Gap 4.0 L (6-13) BUN < 5 L (6-20) mg/dL Creatinine 0.6 (0.4-1.0) mg/dL Estimated GFR (MDRD) 119 (>89) Glucose 117 H (70-100) mg/dL Calcium 8.1 L (8.5-10.3) mg/dL Phosphorus 2.6 (2.5-4.6) mg/dL Magnesium 1.8 (1.7-2.8) mg/dL Total Bilirubin 0.6 (0.2-1.0) mg/dL AST 34 (10-42) IU/L ALT 53 (10-60) IU/L Alkaline Phosphatase 97 (42-121) IU/L Total Protein 5.6 L (6.7-8.2) g/dL Albumin 3.4 (3.2-5.5) g/dL Globulin 2.2 (2.1-4.2) g/dL Albumin/Globulin Ratio 1.5 (1.0-2.2) TSH 3.38 (0.34-5.60) uIU/mL - Current Medications Current Medications: Current Medications Generic Name Dose Route Start Last Admin Trade Name Freq PRN Reason Stop Dose Admin Acetaminophen 650 mg 03/08/18 20:02 03/09/18 16:36 Tylenol PO 650 mg Q4HR PRN Administration Pain 1 to 4 Albuterol 2.5 mg 03/09/18 00:24 03/09/18 21:04 INH 2.5 mg RTQ4H PRN Administration Wheezing Famotidine 20 mg 03/09/18 09:00 03/09/18 08:10 Pepcid PO 20 mg DAILY ANA Administration Ferrous Sulfate 325 mg 03/09/18 09:00 03/09/18 09:17 Feosol PO 325 mg DAILYWM ANA Administration Hydromorphone HCl 1 mg 03/08/18 20:02 03/10/18 06:50 Dilaudid Inj Carp IVP 1 mg Q2HR PRN Administration Pain 8 to 10 Ciprofloxacin 200 mls @ 200 mls/hr 03/08/18 21:00 03/09/18 22:20 Cipro 400 Mg/200 Ml IV Infused Q12H ANA Infusion Metronidazole 500 mg in 100 mls @ 100 mls/hr 03/09/18 00:00 03/10/18 06:58 Flagyl 500 Mg/100 Ml IV 100 mls/hr Q6HR ANA Administration Potassium Chloride/Dextrose/Sod Cl 1,000 mls @ 100 mls/hr 03/09/18 09:00 08/19 06:54 D5.45ns W/20 Meq Kcl IV Not Given .Q10H ANA Levothyroxine Sodium 75 mcg 03/08/18 23:45 03/10/18 06:49 Synthroid PO 75 mcg QDAC ANA Administration Ondansetron HCl 4 mg 03/08/18 20:02 03/10/18 00:50 Zofran Inj IVP 4 mg Q6HR PRN Administration Nausea / Vomiting Oxycodone HCl 10 mg 03/08/18 20:02 03/10/18 02:13 Roxicodone PO 10 mg Q4HR PRN Administration Pain 8 to 10 Polyethylene Glycol 17 gm 03/09/18 09:00 03/09/18 12:42 Miralax PO Not Given DAILY [facility] Prochlorperazine Edisylate 10 mg 03/08/18 20:02 03/09/18 08:49 Compazine Inj IVP 10 mg Q6HR PRN Administration Nausea / Vomiting Sodium Chloride 10 ml 03/08/18 20:02 03/10/18 04:02 Normal Saline Flush 0.9% IVP 10 ml PRN PRN Administration NEEDED PER PROVIDER ORDERS Sodium Chloride 10 ml 03/09/18 01:00 03/10/18 00:42 Normal Saline Flush 0.9% IVP 10 ml 0100,0900,1700 ANA Administration Impression/Plan - Problem List Problem List: Abdominal pain unknown cause. LFTs now down to normal. WBC normal. Afebrile. HIDA scan today to r/o acalculous cholecystitis.
--- NOTE | 2018-03-10 11:18 | Nuclear Medicine Report ---
EXAM: HEPATOBILIARY SCAN EXAM DATE: 03/10/2018 11:08 AM. CLINICAL HISTORY: Possible acalculous cholecystitis. Right upper quadrant abdominal pain. COMPARISON: Ultrasound exam 03/08/2018 TECHNIQUE: Following the intravenous administration of 5.2 mCi of Tc99m Mebrofenin, a hepatobiliary s can was done centered on the right upper quadrant region in multiple sequential images and projection s. Morphine sulfate given: No. Four-hour delayed images performed: No. FINDINGS: Normal extraction of tracer from the blood pool indicating normal hepatocellular function. The liver size and shape is grossly within normal limits. There is activity visualized within the bile ducts and gallbladder within the first hour. Small bowel activity is not demonstrated. Enterogastric bile reflux is not observed. IMPRESSION: 1. Patent cystic duct. 2. Small bowel activity is not visualized within the first hour. This can be a normal variant but com mon bile duct patency cannot be confirmed. If confirmation of CBD patency is desired, a delayed image may be obtained. 3. Negative for acute cholecystitis. 4. No enterogastric bile reflux. [facility] Referring Provider Line: [phone] SITE ID: [id number]
--- NOTE | 2018-03-10 11:18 | Nuclear Medicine Prelim Report ---
Exam: NM HEPATOBILIARY HIDA W/O RX IMPRESSION: 1. Patent cystic duct. 2. Small bowel activity is not visualized within the first hour. This can be a normal variant but com mon bile duct patency cannot be confirmed. If confirmation of CBD patency is desired, a delayed image may be obtained. 3. Negative for acute cholecystitis. 4. No enterogastric bile reflux. [facility] SITE ID: [id number]
[2018-03-10] MEDS: POLYETHYLENE GLYCOL 3350 17 GM PACKET PO SCH (11:35)
--- NOTE | 2018-03-10 13:32 | PROVIDER PROGRESS NOTE ---
Subjective - Prog Note Date Prog Note Date: 03/10/18 - Subjective Pt reports feeling: No change Subjective: pt still report her right upper quadrant pain, and radiate to right flank and right back. No chest pain, SOB, fever, chill. There is no other pain, per pt report. I called Dr. Valles and reported the HIDA finding as far. HIDA may have scan to show CBD patency in delayed image. Dr. Valles want pt to have CT of abdomen as well. Current Medications - Current Medications Current Medications: Active Medications Acetaminophen (Tylenol) 650 mg PO Q4HR PRN PRN Reason: Pain 1 to 4 Last Admin: 03/09/18 16:36 Dose: 650 mg Albuterol () 2.5 mg INH RTQ4H PRN PRN Reason: Wheezing Last Admin: 03/09/18 21:04 Dose: 2.5 mg Famotidine (Pepcid) 20 mg PO DAILY [facility] Last Admin: 03/10/18 08:16 Dose: 20 mg Ferrous Sulfate (Feosol) 325 mg PO DAILYWM [facility] Last Admin: 03/10/18 08:17 Dose: 325 mg Hydromorphone HCl (Dilaudid Inj Carp) 1 mg IVP Q2HR PRN PRN Reason: Pain 8 to 10 Last Admin: 03/10/18 12:37 Dose: 1 mg Ciprofloxacin (Cipro 400 Mg/200 Ml) 200 mls @ 200 mls/hr IV Q12H [facility] Last Admin: 03/10/18 08:16 Dose: 200 mls/hr Metronidazole (Flagyl 500 Mg/100 Ml) 500 mg in 100 mls @ 100 mls/hr IV Q6HR [facility] Last Infusion: 03/10/18 14:24 Dose: Infused Potassium Chloride/Dextrose/Sod Cl (D5.45ns W/20 Meq Kcl) 1,000 mls @ 100 mls/ hr IV .Q10H [facility] Last Admin: 03/10/18 12:39 Dose: 100 mls/hr Levothyroxine Sodium (Synthroid) 75 mcg PO QDAC [facility] Last Admin: 03/10/18 06:49 Dose: 75 mcg Ondansetron HCl (Zofran Inj) 4 mg IVP Q6HR PRN PRN Reason: Nausea / Vomiting Last Admin: 03/10/18 08:21 Dose: 4 mg Oxycodone HCl (Roxicodone) 5 mg PO Q4HR PRN PRN Reason: Pain 5 to 7 Oxycodone HCl (Roxicodone) 10 mg PO Q4HR PRN PRN Reason: Pain 8 to 10 Last Admin: 03/10/18 08:16 Dose: 10 mg Polyethylene Glycol (Miralax) 17 gm PO DAILY [facility] Last Admin: 03/10/18 11:35 Dose: Not Given Prochlorperazine Edisylate (Compazine Inj) 10 mg IVP Q6HR PRN PRN Reason: Nausea / Vomiting Last Admin: 03/09/18 08:49 Dose: 10 mg Promethazine HCl (Phenergan Inj) 25 mg IM Q6HR PRN PRN Reason: Nausea / Vomiting Sodium Chloride (Normal Saline Flush 0.9%) 10 ml IVP PRN PRN PRN Reason: NEEDED PER PROVIDER ORDERS Last Admin: 03/10/18 04:02 Dose: 10 ml Sodium Chloride (Normal Saline Flush 0.9%) 10 ml IVP 0100,0900,1700 [facility] Last Admin: 03/10/18 11:35 Dose: Not Given Sumatriptan Succinate (Imitrex) 25 mg PO ONCE ONE Stop: 03/10/18 14:46 Zolpidem Tartrate (Ambien) 5 mg PO QPM PRN PRN Reason: Insomnia Levothyroxine [Synthroid] 75 mcg PO QDAC 03/09/18 Sertraline HCl [Zoloft] 100 mg PO DAILY 03/09/18 Objective - Vital Signs/Intake & Output Reviewed Vital Signs: Yes Vital Signs: Vital Signs x48h Temp Pulse Pulse Resp BP Pulse Ox 03/10/18 08:12 72 16 03/10/18 08:00 36.8 C 72 16 115/62 95 Intake & Output: Intake & Output 03/07/18 03/08/18 03/09/18 03/10/18 23:59 23:59 23:59 23:59 Intake Total 9629.541 6684.333 1200 Output Total 2 Balance 8342.533 5855.333 1200 - Objective General Appearance: positive: Alert, Mild distress. negative: Lethargic Eyes Bilateral: positive: Normal inspection, PERRL, No lid inflammation, Conjunctivae nml ENT: positive: ENT inspection nml, Pharynx nml, No signs of dehydration. negative: Purulent nasal drainage, Pharyngeal erythema, Oral lesions Neck: positive: Nml inspection, Thyroid nml, No JVD, Trachea midline. negative : Thyromegaly, Lymphadenopathy (R), Lymphadenopathy (L), Stiff neck, Carotid bruit, Swelling/bruising, Tracheal deviation Respiratory: positive: Chest non-tender, No respiratory distress, Breath sounds nml. negative: Wheezes, Rales, Rhonchi Cardiovascular: positive: Regular rate & rhythm, No murmur, No gallop. negative : Irregularly irregular, Extrasystoles, Tachycardia, Bradycardia, Systolic murmur, Diastolic murmur Peripheral Pulses: 2+ Radial (R), 2+ Radial (L), 2+ Dorsalis pedis (R), 2+ Dorsalis pedis (L) Abdomen: positive: No organomegaly, Nml bowel sounds, No distention, Tenderness (Murphin sign is positive in the assessment.). negative: Guarding, Rebound Back: positive: Nml inspection. negative: CVA tenderness (R), CVA tenderness (L ) Skin: positive: Color nml, No rash, Warm, Dry. negative: Cyanosis, Diaphoresis , Pallor Extremities: positive: Non-tender, Full ROM, Nml appearance. negative: Calf tenderness, Joint swelling, Grzegorz's sign/cords Neurologic/Psychiatric: positive: Oriented x3, Motor nml, Sensation nml. negative: Weakness, Sensory loss, Facial droop, Slurred/abnml speech, Depressed mood/affect - Lab Results Fish Bones: 03/10/18 04:34 03/10/18 04:34 Other Labs: Lab Results x24hrs 03/10/1818 18 Range/Units 04:34 04:34 04:34 WBC 4.4 L (4.8-10.8) x10^3/uL RBC 3.75 L (4.20-5.40) 10^6/uL Hgb 10.8 L (12.0-16.0) g/dL Hct 32.7 L (37.0-47.0) % MCV 87.1 (81.0-99.0) fL MCH 28.8 (27.0-31.0) pg MCHC 33.0 (32.0-36.0) g/dL RDW 13.6 (12.0-15.0) % Plt Count 139 (130-450) 10^3/uL MPV 8.3 (7.9-10.8) fL Neut # 2.6 (1.5-6.6) 10^3/uL Lymph # 1.0 L (1.5-3.5) 10^3/uL Victoria # 0.4 (0.0-1.0) 10^3/uL Eos # 0.4 (0.0-0.7) 10^3/uL Baso # 0.0 (0.0-0.1) 10^3/uL Absolute Nucleated RBC 0.00 x10^3/uL Nucleated RBC % 0.0 /100WBC Sodium 138 (135-145) mmol/L Potassium 3.4 L (3.5-5.0) mmol/L Chloride 108 (101-111) mmol/L Carbon Dioxide 26 (21-32) mmol/L Anion Gap 4.0 L (6-13) BUN < 5 L (6-20) mg/dL Creatinine 0.6 (0.4-1.0) mg/dL Estimated GFR (MDRD) 119 (>89) Glucose 117 H (70-100) mg/dL Calcium 8.1 L (8.5-10.3) mg/dL Phosphorus 2.6 (2.5-4.6) mg/dL Magnesium 1.8 (1.7-2.8) mg/dL Total Bilirubin 0.6 (0.2-1.0) mg/dL AST 34 (10-42) IU/L ALT 53 (10-60) IU/L Alkaline Phosphatase 97 (42-121) IU/L Total Protein 5.6 L (6.7-8.2) g/dL Albumin 3.4 (3.2-5.5) g/dL Globulin 2.2 (2.1-4.2) g/dL Albumin/Globulin Ratio 1.5 (1.0-2.2) TSH 3.38 (0.34-5.60) uIU/mL Assessment/Plan - Problem List (1) Acalculous cholecystitis Impression: (1) Acalculous cholecystitis Conclusion/Plan: HIDA scan r/o cholecystitis. pt will have CT of abdomen. will follow up if unremarkable, will d/c IV antibiotics pt still complaint upper right quadrant pain which radiate to right flank and right back. But we do not know the resource yet pain control. If negative in CT of abdomen, and HIDA, per Dr. Valles recommend, pt can be d/c and pain will be managed by PCP. discuss with pt for surgeon's plan, answer all concerns. Pt will have HIDA scan tomorrow, order diet to pt per surgeon's recommend. continue pain control, and antibiotics until clear etiology IVF The patient presents with right upper quadrant abdominal pain and tenderness. The patient does have a positive Boss sign. The patient's abdominal ultrasound is concerning for possible acalculous cholecystitis. The patient has had similar symptoms of right upper quadrant pain in the past when eating greasy foods and while she was . Emergency room physician did speak with the surgeon director professional services who asked for a HIDA scan which cannot be done until Saturday. The patient is being admitted by the hospitalist team for a calculus cholecystitis. Plan: IV ciprofloxacin and Flagyl IV fluids IV antiemetics IV pain medication HIDA scan Surgical consult (2) Hypokalemia Conclusion/Plan: replacement of potassium continue daily lab monitor The patient has hypokalemia on presentation with a potassium of 3.3 this is likely due to her vomiting at home. The patient continues to be nauseous and will be given antiemetics for her nausea. The patient will be given potassium replacement while she is hospitalized. (3) Transaminitis Conclusion/Plan: normal, resolved slight elevated liver enzyme order hepatitis panel continue support, lab monitor The patient does have a transaminitis with elevated AST, ALT and alk phos. This could be in the setting of a calculus cholecystitis. Also the patient did have flulike symptoms over the last 4 days and could also have a viral infection which can also cause a transaminitis. For now we will trend the patient's LFTs if they do continue to rise patient will likely need cholecystectomy. (4) Hypothyroidism Conclusion/Plan: TSH is normal, continue synthroid order TSH, continue home meds Patient has a history of hypothyroidism and uses Synthroid 75 mcg daily at home She appears to be stable at this time and will be continued on her home dose of Synthroid. (5) Asthma Conclusion/Plan: stable, continue home meds Patient has history of asthma which is currently stable Patient will be placed on albuterol nebulizer as needed while she is hospitalized. (6) Anemia Conclusion/Plan: HGB today is 10.7, could be dilated. MCV is less than 90, order iron study, iron deficiency ferrous sulf daily The patient has history of iron deficiency anemia and is on iron supplements at home. Her hemoglobin is currently 11.2 which is only mildly anemic. We do not have a previous hemoglobin but assume that it has improved from when she started using the iron. Stable
[2018-03-10] MEDS ORDERED: IOPAMIDOL-300 100 ML VIAL ONE (13:37)
[2018-03-10] MEDS ORDERED: IOPAMIDOL-300 50 ML VIAL ONE (13:37)
[2018-03-10] MEDS ORDERED: SUMAtriptan 25 MG TABLET PO ONE (14:45)
[2018-03-10] MEDS ORDERED: IOPAMIDOL-300 100 ML VIAL IVP ONE (15:13)
[2018-03-10] MEDS ORDERED: IOPAMIDOL-300 50 ML VIAL PO ONE (15:13)
[2018-03-10 16:17] VITALS: BP 109/60
--- NOTE | 2018-03-10 16:20 | CT Report ---
CT OF ABDOMEN AND PELVIS WITH CONTRAST: 03/10/2018 CLINICAL INDICATION: Abdominal pain. COMPARISON: Ultrasound 03/08/2018, HIDA scan 03/10/2018. TECHNIQUE: Axial CT images of the abdomen and pelvis were obtained with 100 mL Isovue 300 intravenously as well as oral contrast. FINDINGS Limited evaluation of the lung bases is unremarkable. ABDOMEN: The liver, spleen, pancreas, kidneys and adrenal glands are unremarkable. There is pericholecystic fluid noted, but no evidence of gallbladder dilatation. Small mesenteric lymph nodes are present, which do not reach size criteria for lymphadenopathy. No bowel dilatation, free gas, or free fluid is present. PELVIS: The appendix is seen in the right lower quadrant, and is normal in caliber. Trace free fluid is present in the cul-de-sac. No pelvic sidewall adenopathy is seen. No inguinal adenopathy is present. Osseous structures are unremarkable. IMPRESSION: SMALL AMOUNT OF PERICHOLECYSTIC FLUID, SIMILAR TO ULTRASOUND. SMALL MESENTERIC LYMPH NODES, WHICH DO NOT REACH SIZE CRITERIA FOR LYMPHADENOPATHY. NORMAL APPENDIX. In accordance with CT protocol optimization, one or more of the following dose reduction techniques were utilized for this exam: automated exposure control, adjustment of mA and/or KV based on patient size, or use of iterative reconstructive technique. TD: 03/10/2018 16:19 TACOS
--- NOTE | 2018-03-10 17:12 | DISCHARGE SUMMARY ---
Discharge Summary Discharge Date: 03/10/18 Discharging Provider: ALBARRAN Primary Care Provider: Monserrat Simmons Code Status: Attempt Resuscitation Condition at Discharge: Poor Discharge Disposition: Against Medical Advice Discharge Facility Name: home - DIAGNOSES Admission Diagnoses: (1) Acalculous cholecystitis (2) Hypokalemia (3) Transaminitis (4) Hypothyroidism (5) Asthma (6) Anemia Discharge Diagnoses with Status of Each Condition: (1) Acalculous cholecystitis HIDA scan reveals negative acute cholecystitis. CT of abdomen reveals small amount of pericholecystic fluid, similar to US. I discussed All image studies with pt, and answer all pt's questions. (2) Hypokalemia today potassium is 3.4, and replaced (3) Transaminitis normal today. (4) Hypothyroidism TSH normal (5) Asthma stable (6) Anemia stable (7) Migraine headache Pt request pain medication for her headache, pt reports she had hx of migraine headache. I prescribed Sumatriptan once to pt. I did not get the response report about migraine headache after the medication given from nurse yet. - HPI History of Present Illness: refer from Dr. Jones's HPI on pt - CONSULTS | PROCEDURES Consultations: Dr. Henok Valles Procedures: no procedure - HOSPITAL COURSE Hospital Course: pt was admitted for right upper quadrant abdominal pain. General surgeon Dr. Henok Valles was consulted for possible surgery. Pt had HIDA and CT of abdomen today. HIDA reveals no acute cholycystitis. CT of abdomen reveals small amount of pericholecystic fluid, similar to US. I discussed All image study results with pt, and answer all pt's questions. I print the image studies for pt. Pt request to see Dr. Valles on this afternoon around 5pm. I immediately called Dr. Valles, "pt want to see you." Dr. Valles state to me " I will see her on tomorrow morning." I told pt " Dr. Valles will see you on tomorrow morning." Then pt requests to sign AMA. I explained to pt the risk of AMA. Pt did sign AMA and left hospital. I did report to Dr. Valles, pt signed AMA and left. - ALLERGIES Allergies/Adverse Reactions: Allergies Allergy/AdvReac Type Severity Reaction Status Date / Time No Known Drug Allergies Allergy Verified 03/08/18 12:16 - MEDICATIONS Home Medications: Ambulatory Orders Medication Instructions Recorded Confirmed Levothyroxine [Synthroid] 75 mcg PO QDAC 03/09/18 03/09/18 Sertraline HCl [Zoloft] 100 mg PO DAILY 03/09/18 03/09/18 - LABS Result Diagrams: 03/10/18 04:34 03/10/18 04:34 - FOLLOW UP Follow Up: pt signed AMA and left the hospital. - TIME SPENT Time Spent in Discharge (Minutes): 40
[2018-03-11 09:47] LABS: HEPATITIS A IGM NON-REACTIVE (NON-REACTIVE); HEPATITIS B CORE ANTIBODY IGM NON-REACTIVE (NON-REACTIVE); HEPATITIS B SURFACE ANTIGEN NON-REACTIVE (NON-REACTIVE); HEPATITIS C ANTIBODY NON-REACTIVE (NON-REACTIVE)
== END 2018-03-10 17:15 | disposition left against medical advice (07) | DRG 446 ==
LOC: ED 12:06 → MS2 20:02
PROVIDERS: ADMIT Internal Medicine; ATTEND Nurse Practitioner Gerontology
DX: K81.9 Cholecystitis, unspecified (principal); E87.6 Hypokalemia; R74.0 Nonspecific elevation of levels of transaminase and lactic acid dehydrogenase [LDH]; E03.9 Hypothyroidism, unspecified; J45.20 Mild intermittent asthma, uncomplicated; D50.0 Iron deficiency anemia secondary to blood loss (chronic); G43.909 Migraine, unspecified, not intractable, without status migrainosus; Z79.899 Other long term (current) drug therapy
CPT/HCPCS: 36415; 74177; 76705; 78226; 80053; 80074; 81001; 81003; 81025; 83605; 83690; 83735; 84100; 84443; 85025; 85610; 87040; 87086; 94640; 96361; 96374; 99283; 99284; 99285